=== PATIENT | male | born 1960 | race Caucasian/White ===

== ENCOUNTER 2016-11-28 17:44 | Emergency (ER) | payer SELFPAY ==
--- NOTE | 2016-11-28 17:52 | ED.ADGEN ---
Past History Past Medical History: No Pertinent History Past Surgical History: Other Smoking: Cigarettes Alcohol Use: None Drug Use: None Adult General Chief Complaint Chief Complaint ".. I fell on the .. I slipped on a greasy floor.. and hurt my Rt. wrist.. and chest... when I fell against a bucket..."... " But I hurt this Rt. wrist again..." HPI HPI Patient is a 56 year old male who presents with above hx and complaints of falling while working at " [employer]. Pt. complaints of right chest wall tenderness and right wrist and thumb tenderness. Patient has contusion to chest wall pain along the anterior axillary line. Pain is reproducible with palpitation, cough and movement. Patient does have an area of ecchymosis at this location. Liver is nontender. Patient localizes pain and right wrist and thumb. The neurovascular intact. Patient has obvious pain on palpation of scaphoid area. Patient is right-hand dominant. Review of Systems Review of Systems Constitutional: Denies fever or chills [] Eyes: Denies change in visual acuity, redness, or eye pain [] HENT: Denies nasal congestion or sore throat [] Respiratory: Denies cough or shortness of breath [] complaints of right chest wall pain Cardiovascular: No additional information not addressed in HPI [] GI: Denies abdominal pain, nausea, vomiting, bloody stools or diarrhea [] : Denies dysuria or hematuria [] Musculoskeletal: Denies back pain or joint pain [] complaints of right wrist pain Integument: Denies rash or skin lesions [] Neurologic: Denies headache, focal weakness or sensory changes [] Endocrine: Denies polyuria or polydipsia [] Family History Family History Noncontributory Current Medications Current Medications See nursing for home meds Current Medications Medications (Trade) Dose Ordered Sig/Abner Start Time Stop Time Status Last Admin Dose Admin Ibuprofen (Motrin) 600 mg 1X ONCE 11/28/16 19:00 11/28/16 19:01 DC 11/28/16 19:00 600 MG Allergies Allergies Allergies Coded Allergies Type Severity Reaction Last Updated Verified No Known Drug Allergies 07/26/13 No Physical Exam Physical Exam Constitutional: Mild distress, non-toxic appearance. [] HENT: Normocephalic, atraumatic, bilateral external ears normal, oropharynx moist, no oral exudates, nose normal. [] Eyes: PERRLA, EOMI, conjunctiva normal, no discharge. [] Neck: Normal range of motion, no tenderness, supple, no stridor. [] Cardiovascular:Heart rate regular rhythm, no murmur [] Lungs & Thorax: Bilateral breath sounds equal at apexes with scattered wheezing on auscultation [. Right chest wall tenderness as per history of present illness.] Abdomen: Bowel sounds normal, soft, no tenderness, no masses, no pulsatile masses. [] Skin: Warm, dry, no erythema, no rash. [] Ecchymosis along the right chest wall Back: No tenderness, no CVA tenderness. [] Extremities: Right wrist tenderness, no cyanosis, no clubbing, ROM intact but tender and right wrist, right wrist edema. [] Neurologic: Alert and oriented X 3, normal motor function, normal sensory function, no focal deficits noted. [] Psychologic: Affect anxious, judgement normal, mood normal. [] Current Patient Data Vital Signs Vital Signs Date Time Temp Pulse Resp B/P Pulse Ox O2 Delivery O2 Flow Rate FiO2 11/28/16 19:00 97.4 60 20 97 Room Air EKG EKG [] Radiology/Procedures Radiology/Procedures My interpretation chest x-ray shows borderline cardiac silhouette. No pneumothorax. Some mild degenerative joint changes. Does have an area which appears to be parenchymal contused along the right chest wall. [] My interpretation of her right wrist film shows no obvious fracture or dislocation. There are some findings of soft tissue edema. Course & Med Decision Making Course & Med Decision Making Pertinent Labs and Imaging studies reviewed. (See chart for details) Neuro-Vascular intact after application of spica splint . Patient to keep ice and elevation as needed to reduce swelling. Patient take [id number] Tylenol and ibuprofen. Patient follow-up workmen comp. For marked pain patient may take Vicoprofen up 4 times a day. Patient encouraged to stop smoking. Patient return if any concerns. Would repeat x-ray right wrist within 2 weeks see if there is a callus formation of the scaphoid. [] Final Impression Final Impression 1. Right chest wall contusion 2. Tobacco use 3. Right wrist and thumb sprain-there is possibility of scaphoid fracture [] Problems: Dragon Disclaimer Dragon Disclaimer This electronic medical record was generated, in whole or in part, using a voice recognition dictation system. MARIIA SERNA MD Nov 28, 2016 17:52
[2016-11-28] MEDS ORDERED: HYDR-79 PO (18:49)
[2016-11-28 19:00] VITALS: BP 137/95
[2016-11-28] MEDS: IBUPROFEN 600 MG TABLET. PO ONE (19:00)
--- NOTE | 2016-11-29 08:24 | RAD ---
Exam: PA and lateral chest radiograph History: Injury from fall 2 weeks ago, right pain. Comparison: 07/26/2013. Findings: Cardiomediastinal silhouette is within normal limits for size. Bilateral lung silverman are free of focal infiltrate. No pleural effusion is seen. No displaced rib fractures are identified. Impression: No acute cardiopulmonary process.
--- NOTE | 2016-11-29 08:25 | RAD ---
Right wrist radiographs History: Fall 2 weeks ago, pain. Comparison: None. Findings: PA, lateral, and oblique views of the right wrist. No acute fracture or dislocation is identified. No focal soft tissue swelling is seen. Impression: No acute osseous traumatic injury identified.
== END 2016-11-28 20:05 | disposition home or self-care (01) ==
LOC: ER 17:44
DX: S63.501A Unspecified sprain of right wrist, initial encounter (principal); S20.211A Contusion of right front wall of thorax, initial encounter; F17.210 Nicotine dependence, cigarettes, uncomplicated; W01.198A Fall on same level from slipping, tripping and stumbling with subsequent striking against other object, initial encounter; Y93.89 Activity, other specified; Y99.8 Other external cause status; Y92.89 Other specified places as the place of occurrence of the external cause
CPT/HCPCS: 29130; 71020; 73110; 99284-25

== ENCOUNTER 2017-10-23 12:03 | Emergency (ER) | payer SELFPAY ==
[~2017-10-23] VITALS: Ht 185.4 cm; Wt 95.3 kg
[~2017-10-23 12:03] MED LIST: HYDR-79 PO
[2017-10-23 12:21] VITALS: BP 137/77
--- NOTE | 2017-10-23 12:51 | PHYS DOC ---
Past History Past Medical History: No Pertinent History Past Surgical History: No Surgical History Smoking: Cigarettes Alcohol Use: None Drug Use: None Adult General Chief Complaint Chief Complaint: bump on foot. HPI HPI 57-year-old male reportedly otherwise healthy presenting to the emergency department today with mild bump on the bottom of his left foot. He reports his been there for 1.5 years. It comes and goes. He has at times, it off but he reports it came back many times. He has mild pain when he walks on it. He denies any rash near it. The pain in the bottom of his foot is a sharp shooting pain nonradiating. He denies any other symptoms. Past medical history history of headaches Past surgical history back surgery in the past allergies none Social history smokes drinks daily and denies IV drug use. Review of systems is negative for chest pain shortness of breath abdominal pain nausea vomiting fevers or chills. All other review of systems is negative unless otherwise noted in history of present illness. ED course: 57-year-old male presenting to the emergency department with what is likely a plantar wart on his left foot. I will refer him to our local hydraulic riveter for further treatment and care. The patient was then discharged home in stable condition to follow up with a hydraulic riveter withint the next 2-3 days. They were to return if their symptoms worsened or if they were concerned for any reason. [id number] discharge instructions and return precautions were given. Patient's questions were answered to their satisfaction. Patient is comfortable with plan. Review of Systems Review of Systems SEE ABOVE. Allergies Allergies Allergies Coded Allergies Type Severity Reaction Last Updated Verified No Known Drug Allergies 07/26/13 No Physical Exam Physical Exam SEE ABOVE Constitutional: Well developed, well nourished, no acute distress, non-toxic appearance. [] HENT: Normocephalic, atraumatic, bilateral external ears normal, oropharynx moist, no oral exudates, nose normal. [] Eyes: PERRLA, EOMI, conjunctiva normal, no discharge. [] Neck: Normal range of motion, no tenderness, supple, no stridor. [] Cardiovascular:Heart rate regular rhythm, no murmur [] Lungs & Thorax: Bilateral breath sounds clear to auscultation [] Abdomen: Bowel sounds normal, soft, no tenderness, no masses, no pulsatile masses. [] Skin: Warm, dry, no erythema, no rash. [] Back: No tenderness, no CVA tenderness. [] Extremities: The patient's left lower extremity shows a small bump on the bottom of his foot. No erythema. Normal temperature to touch. Palpable pulse bilaterally. Cap refill bilaterally. Otherwise unremarkable. Nontender with normal range of motion of the joints. Neurologic: Alert and oriented X 3, normal motor function, normal sensory function, no focal deficits noted. [] Psychologic: Affect normal, judgement normal, mood normal. [] Current Patient Data Vital Signs Vital Signs Date Time Temp Pulse Resp B/P (MAP) Pulse Ox O2 Delivery O2 Flow Rate FiO2 10/23/17 12:21 98.6 52 18 100 Room Air EKG EKG [] Radiology/Procedures Radiology/Procedures [] Course & Med Decision Making Course & Med Decision Making Pertinent Labs and Imaging studies reviewed. (See chart for details) [] Dragon Disclaimer Dragon Disclaimer This electronic medical record was generated, in whole or in part, using a voice recognition dictation system. Departure Departure: Impression: Primary Impression: Plantar wart, left foot Disposition: 01 HOME, SELF-CARE Condition: STABLE Referrals: PCP,NO (PCP) Patient Instructions: Plantar Warts, [id number] Additional Instructions: Thank you for allowing us to participate in your care today. I am referring you to a hydraulic riveter in [facility] within 3-5 days. Information below: Juan Antonio Garcia DPM [address] [place] [address] Call your Primary Doctor tomorrow and inform them of your visit today. If you do not have a primary care provider you can ask for a list of our primary care providers. Return to the emergency department you have any new or concerning findings. This should be evaluated by the primary care physician and any necessary consulting services for continued management within a few days after discharge. Return to emergency room if you have any new or concerning symptoms including but not limited to fever, chills, nausea, vomiting, intractable pain, any new rashes, chest pain, shortness of air, uncontrolled bleeding, difficulty breathing, and/or vision loss. LEONEL TABARES MD Oct 23, 2017 12:51
== END 2017-10-23 13:00 | disposition home or self-care (01) ==
LOC: ER 12:03
DX: B07.0 Plantar wart (principal); F17.210 Nicotine dependence, cigarettes, uncomplicated
CPT/HCPCS: 99281

== ENCOUNTER 2018-09-28 15:12 | Emergency (ER) | payer SELFPAY ==
[~2018-09-28] VITALS: Ht 185.4 cm; Wt 100.1 kg
[~2018-09-28 15:12] MED LIST changes: +HYDR-1179 PO; -HYDR-79 PO
[2018-09-28] MEDS ORDERED: IPRATRPIUM/ALBUTEROL 0.5/2.5MG 3 ML NEBU. NEB ONE (15:45)
--- NOTE | 2018-09-28 15:48 | EKG ---
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 Electronically Signed On 10-01-2018 10:50:23 GLOVE SEWER by Maurice Small
--- NOTE | 2018-09-28 15:51 | RAD ---
Portable chest, 09/28/2018: HISTORY: Shortness of breath, cough Comparison is made to a study from 11/28/2016. The heart size is normal. A calcified granuloma is present in the right base. No acute infiltrate is seen. There is no evidence of pleural fluid. IMPRESSION: No acute cardiopulmonary abnormality is detected. Electronically signed by: Chris Salcedo MD (09/28/2018 3:48 PM) [facility]
--- NOTE | 2018-09-28 15:53 | PHYS DOC ---
Past History Past Medical History: No Pertinent History Past Surgical History History of cyst removal from back. Smoking: Cigarettes Alcohol Use: None Drug Use: None Adult General Chief Complaint Chief Complaint: cough HPI HPI 58-year-old male presenting to the emergency department today with a dry mildly productive cough with yellow sputum production. Cough is been present for approximately 10 days. He is tried DayQuil and NyQuil with minimal relief. He denies any fevers or chills. He denies any pain. He also has associated shortness of breath which is worse after he has a long coughing episode. His cough is worse at night. Review of systems is negative for chest pain abdominal pain nausea vomiting fever chills. He denies neck stiffness or nuchal rigidity. All other review of systems is negative unless otherwise noted in history of present illness. ED course: 58-year-old male presenting with a cough. He is afebrile here in the emergency department with a normal heart rate. EKG reviewed by myself shows sinus rhythm with a regular rate. ST segments congruent. Not suggestive of ACS. Chest x-ray ordered along with blood work. Physical exam shows clear lungs bilaterally. Chest x-ray is unremarkable. Blood work unremarkable. Patient is able to ambulate in the emergency department without difficulty. We'll prescribe him oral azithromycin and follow up with his doctor.The patient has been examined and was not found to have an emergency medical condition. The patient was then discharged home in stable condition to follow up with their primary care physician over the next 1-2 days. They were to return if their symptoms worsened or if they were concerned for any reason. They were also instructed to return to the emergency department if they were unable to get the recommended and appropriate follow-up. [id number] discharge instructions and return precautions were given. Patient's questions were answered to their satisfaction. Patient is comfortable with plan. Review of Systems Review of Systems SEE ABOVE. Current Medications Current Medications Current Medications Medications (Trade) Dose Ordered Sig/[facility] Start Time Stop Time Status Last Admin Dose Admin Albuterol/ Ipratropium (Duoneb) 3 ml 1X ONCE 09/28/18 15:45 09/28/18 15:47 DC Allergies Allergies Allergies Coded Allergies Type Severity Reaction Last Updated Verified No Known Drug Allergies 07/26/13 No Physical Exam Physical Exam SEE ABOVE Constitutional: Well developed, well nourished, no acute distress, non-toxic appearance. [] HENT: Normocephalic, atraumatic, bilateral external ears normal, oropharynx moist, no oral exudates, nose normal. [] Eyes: PERRLA, EOMI, conjunctiva normal, no discharge. [] Neck: Normal range of motion, no tenderness, supple, no stridor. [] Cardiovascular:Heart rate regular rhythm, no murmur [] Lungs & Thorax: Bilateral breath sounds clear to auscultation [] Abdomen: Bowel sounds normal, soft, no tenderness, no masses, no pulsatile masses. [] Skin: Warm, dry, no erythema, no rash. [] Back: No tenderness, no CVA tenderness. [] Extremities: No tenderness, no cyanosis, no clubbing, ROM intact, no edema. [] Neurologic: Alert and oriented X 3, normal motor function, normal sensory function, no focal deficits noted. [] Psychologic: Affect normal, judgement normal, mood normal. [] EKG EKG [] Radiology/Procedures Radiology/Procedures [] Course & Med Decision Making Course & Med Decision Making Pertinent Labs and Imaging studies reviewed. (See chart for details) [] Dragon Disclaimer Dragon Disclaimer This electronic medical record was generated, in whole or in part, using a voice recognition dictation system. Departure Departure: Impression: Primary Impression: Cough Disposition: 01 HOME, SELF-CARE Condition: STABLE Referrals: SADIA BEAUCHAMP (PCP) Patient Instructions: Cough, Adult Additional Instructions: Thank you for allowing us to participate in your care today. Return to the emergency department you have any new or worsening symptoms, or if you are concerned for any reason. Return to emergency department if you have any new or concerning symptoms including but not limited to fever, chills, nausea, vomiting, intractable pain, any new rashes, chest pain, shortness of air , uncontrolled bleeding, difficulty breathing, and/or vision loss. Follow up with your primary care physician within 1-2 days. Call your Primary Doctor tomorrow and inform them of your visit today. If you do not have a primary care provider we are happy to provide you with a list of our primary care providers contact information. This condition should be evaluated by your primary care physician and any recommended consulting services for continued management within 2 days after discharge. If at any time, you are having difficulty getting into your primary care doctor or a specialist, return to the emergency department. Scripts Albuterol Sulfate (Ventolin Hfa) 8 Gm Hfa.aer.ad 1 GM IH PRN TID PRN for COUGH for 5 Days, #1 INHALER Prov: LEONEL TABARES MD 09/28/18 Azithromycin (AZITHROMYCIN TABLET) 250 Mg Tablet 1 PKG PO UD for cough, #6 TAB Prov: LEONEL TABARES MD 09/28/18 LEONEL TABARES MD Sep 28, 2018 15:53
[2018-09-28 16:09] LABS: BASO % 1 % (0-3); EOS # 0.5 x10^3/uL (0.0-0.7); EOS % 5 % (0-3); HEMATOCRIT 39.5 % (39.0-53.0); HEMOGLOBIN 13.8 g/dL (13.0-17.5); LYMPH # 1.8 x10^3/uL (1.0-4.8); LYMPH % 21 % (24-48); MEAN CORPUSCULAR HEMOGLOBIN 32 pg (25-35); MEAN CORPUSCULAR HGB CONC 35 g/dL (31-37); MEAN CORPUSCULAR VOLUME 92 fL (79-100); MONO # 0.7 x10^3/uL (0.0-1.1); MONO % 8 % (0-9); NEUT # 5.8 x10^3uL (1.8-7.7); NEUT % 66 % (31-73); PLATELET COUNT 308 x10^3/uL (140-400); RED BLOOD COUNT 4.28 x10^6/uL (4.30-5.70); RED CELL DISTRIBUTION WIDTH 13.2 % (11.5-14.5); WHITE BLOOD COUNT 8.8 x10^3/uL (4.0-11.0)
[2018-09-28 16:32] LABS: ALBUMIN 3.4 g/dL (3.4-5.0); CALCIUM 8.7 mg/dL (8.5-10.1); DIRECT BILIRUBIN 0.1 mg/dL (0.0-0.2); GFR 77.3; POTASSIUM 4.3 mmol/L (3.5-5.1); TOTAL BILIRUBIN 0.3 mg/dL (0.2-1.0); TOTAL PROTEIN 7.7 g/dL (6.4-8.2)
[2018-09-28] MEDS ORDERED: AZIT250T6 PO (16:38)
[2018-09-28] MEDS ORDERED: ALBU8HFA2 IH (16:38)
[2018-09-28 17:04] VITALS: BP 138/72
== END 2018-09-28 17:04 | disposition home or self-care (01) ==
LOC: ER 15:12
DX: R05 Cough (principal); R06.02 Shortness of breath; F17.210 Nicotine dependence, cigarettes, uncomplicated
CPT/HCPCS: 36415; 71045; 80048; 80076; 83690; 84484; 85025; 93005; 94640; 99284; J7620

== ENCOUNTER 2019-09-17 10:14 | Emergency (ER) | payer SELFPAY ==
[~2019-09-17] VITALS: Ht 185.4 cm; Wt 100.9 kg
[~2019-09-17 10:14] MED LIST changes: +ALBU8HFA2 IH; +AZIT250T6 PO
[2019-09-17] MEDS ORDERED: IV NORMAL SALINE 1,000ML 1,000 ML IV SCH (10:33)
--- NOTE | 2019-09-17 10:44 | PHYS DOC ---
Past History Past Medical History: No Pertinent History Smoking: Cigarettes Alcohol Use: Occasionally Drug Use: None Adult General Chief Complaint Chief Complaint: CHEST PAIN HPI HPI 59-year-old male presents with shortness of breath and chest tightness. He tells me that he has had intermittent chest tightness made worse by breathing cold air for the last few years since having pneumonia. Long Term feels the same. He has been outside a lot recently and the temperatures are less than 40 Fahrenheit. He has had a increase in his cough with some clear sputum. The patient is a 2-1/2 pack a day smoker. He has no official diagnosis of COPD. He tells me that the shortness of breath makes it difficult to walk more than 50 feet without needing to rest. His breathing improves with rest. Exertion does not seem to make the chest pain worse. Patient does not believe he's had a fever. He does not use any breathing treatments. He rarely goes to the doctor. Review of Systems Review of Systems Constitutional: Denies fever or chills [] Eyes: Denies change in visual acuity, redness, or eye pain [] HENT: Nasal congestion. Denies or sore throat [] Respiratory: Cough with shortness of breath [] Cardiovascular: No additional information not addressed in HPI [] GI: Denies abdominal pain, nausea, vomiting, bloody stools or diarrhea [] : Denies dysuria or hematuria [] Musculoskeletal: Denies back pain or joint pain [] Integument: Denies rash or skin lesions [] Neurologic: Denies headache, focal weakness or sensory changes [] Endocrine: Denies polyuria or polydipsia [] All other systems were reviewed and found to be within normal limits, except as documented in this note. Current Medications Current Medications Current Medications Medications (Trade) Dose Ordered Sig/Abner Start Time Stop Time Status Last Admin Dose Admin Albuterol/ Ipratropium (Duoneb) 3 ml 1X ONCE 09/17/19 10:45 09/17/19 10:46 UNV Sodium Chloride 1,000 ml @ 1,000 mls/hr Q1H 09/17/19 10:33 09/17/19 11:32 UNV Allergies Allergies Allergies Coded Allergies Type Severity Reaction Last Updated Verified No Known Drug Allergies 07/26/13 No Physical Exam Physical Exam Constitutional: Well developed, well nourished, no acute distress, non-toxic appearance. [] HENT: Normocephalic, atraumatic, bilateral external ears normal, oropharynx moist, no oral exudates, nose normal. [] Eyes: PERRLA, EOMI, conjunctiva normal, no discharge. [] Neck: Normal range of motion, no tenderness, supple, no stridor. [] Cardiovascular:Heart rate regular rhythm, no murmur [] Lungs & Thorax: Bilateral breath sounds diminished with and expiratory wheezing[] Abdomen: Bowel sounds normal, soft, no tenderness, no masses, no pulsatile masses. [] Skin: Warm, dry, no erythema, no rash. [] Back: No tenderness, no CVA tenderness. [] Extremities: No tenderness, no cyanosis, no clubbing, ROM intact, no edema. [] Neurologic: Alert and oriented X 3, normal motor function, normal sensory function, no focal deficits noted. [] Psychologic: Affect normal, judgement normal, mood normal. [] EKG EKG Sinus rhythm, rate 54, normal axis, no ST elevation or depression[] Radiology/Procedures Radiology/Procedures [] Impressions: CHEST PA LATERAL History: Shortness of breath Comparison: 09/28/2018 Findings: 2 views of the chest are submitted. There is no infiltrate, pneumothorax, or effusion. Pericardial cardiac silhouette is stable. There is atherosclerotic calcification near aortic arch. There is likely emphysema Impression: 1. There is likely emphysema. No significant infiltrate is identified by radiographs. Electronically signed by: Neptali Garcia MD (09/17/2019 11:15 AM) [id number] DICTATED AND SIGNED BY: NEPTALI GARCIA MD DATE: 09/17/19 [id number] CC: LAWSON CONWAY DO; PCP,NO ~ Course & Med Decision Making Course & Med Decision Making Pertinent Labs and Imaging studies reviewed. (See chart for details) The patient's labs are unremarkable. His chest x-ray is negative for new. His influenza was negative. This is likely a COPD exacerbation. I have given him 125 of Solu-Medrol in the ER. I will send him home on 3 more days of prednisone. He is stable for discharge at this time. [] Dragon Disclaimer Dragon Disclaimer This electronic medical record was generated, in whole or in part, using a voice recognition dictation system. The HEART Score for CP Pts HEART Score for Chest Pain: HEART Score for Chest Pain Response (Comments) Value History Slighlty/Non-Suspicious 0 ECG Normal 0 Age >45 - < 65 1 Risk Factors 1 or 2 Risk Factors 1 Troponin < Normal Limit 0 Total 2 Risk Factors: Risk Factors: DM, Current or recent (<one month) smoker, HTN, HLP, family history of CAD, obesity. Risk Scores: Score 0 - 3: 2.5% MACE over next 6 weeks - Discharge Home Score 4 - 6: 20.3% MACE over next 6 weeks - Admit for Clinical Observation Score 7 - 10: 72.7% MACE over next 6 weeks - Early Invasive Strategies Departure Departure: Impression: Primary Impression: COPD exacerbation Disposition: HOME, SELF-CARE Condition: STABLE Referrals: PCP,SADIA (PCP) Patient Instructions: Chronic Obstructive Pulmonary Disease Exacerbation, [id number] Scripts Albuterol Sulfate (VENTOLIN HFA INHALER) 18 Gm Hfa.aer.ad 1-2 PUFF IH PRN Q4HRS PRN for SHORTNESS OF BREATH, #1 INHALER 0 Refills Prov: LAWSON CONWAY DO 09/17/19 Prednisone (PREDNISONE) 20 Mg Tablet 3 TAB PO DAILY for COPD exacerbation for 3 Days, #9 TAB Prov: LAWSON CONWAY DO 09/17/19 LAWSON CONWAY DO Sep 17, 2019 10:44
[2019-09-17] MEDS ORDERED: methylPREDNISolone SOD SUCC PF 125 MG/2 ML VIAL. IV ONE (10:45)
[2019-09-17] MEDS ORDERED: IPRATRPIUM/ALBUTEROL 0.5/2.5MG 3 ML NEBU. NEB ONE (10:45)
[2019-09-17 10:56] LABS: BASO # 0.1 x10^3/uL (0.0-0.2); BASO % 1 % (0-3); EOS # 0.2 x10^3/uL (0.0-0.7); EOS % 2 % (0-3); HEMATOCRIT 40.7 % (39.0-53.0); LYMPH % 28 % (24-48); MEAN CORPUSCULAR HEMOGLOBIN 32 pg (25-35); MEAN CORPUSCULAR HGB CONC 34 g/dL (31-37); MEAN CORPUSCULAR VOLUME 94 fL (79-100); MONO # 0.5 x10^3/uL (0.0-1.1); MONO % 6 % (0-9); NEUT # 4.6 x10^3uL (1.8-7.7); NEUT % 63 % (31-73); PLATELET COUNT 219 x10^3/uL (140-400); RED BLOOD COUNT 4.33 x10^6/uL (4.30-5.70); RED CELL DISTRIBUTION WIDTH 12.9 % (11.5-14.5); WHITE BLOOD COUNT 7.4 x10^3/uL (4.0-11.0)
[2019-09-17 11:06] LABS: CALCIUM 8.1 mg/dL (8.5-10.1); CREATININE 0.9 mg/dL (0.7-1.3); POTASSIUM 4.1 mmol/L (3.5-5.1)
[2019-09-17 11:18] LABS: ALBUMIN 3.4 g/dL (3.4-5.0); TOTAL BILIRUBIN 0.2 mg/dL (0.2-1.0); TOTAL PROTEIN 6.7 g/dL (6.4-8.2)
--- NOTE | 2019-09-17 11:18 | RAD ---
CHEST PA LATERAL History: Shortness of breath Comparison: 09/28/2018 Findings: 2 views of the chest are submitted. There is no infiltrate, pneumothorax, or effusion. Pericardial cardiac silhouette is stable. There is atherosclerotic calcification near aortic arch. There is likely emphysema Impression: 1. There is likely emphysema. No significant infiltrate is identified by radiographs. Electronically signed by: Papa Martinez MD (09/17/2019 11:15 AM) [id number]
[2019-09-17 11:25] LABS: INFLUENZA A PATIENT NEGATIVE (NEGATIVE); INFLUENZA B PATIENT NEGATIVE (NEGATIVE)
[2019-09-17] MEDS ORDERED: PRED20TA PO (11:37)
[2019-09-17] MEDS ORDERED: ALBU2.5V8 IH (11:38)
[2019-09-17 11:45] VITALS: BP 140/63
--- NOTE | 2019-09-17 12:36 | EKG ---
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
== END 2019-09-17 11:46 | disposition home or self-care (01) ==
LOC: ER 10:14
DX: J44.1 Chronic obstructive pulmonary disease with (acute) exacerbation (principal); F17.210 Nicotine dependence, cigarettes, uncomplicated
CPT/HCPCS: 36415; 71046; 80053; 83880; 84484; 85025; 87804; 93005; 94640; 96374; 99285; J2930; J7620; J7030

== ENCOUNTER 2019-11-29 06:15 | Emergency (ER) | payer SELFPAY ==
[~2019-11-29] VITALS: Ht 185.4 cm; Wt 102.8 kg
[2019-11-29 06:15] VITALS: BP 128/58
[~2019-11-29 06:15] MED LIST changes: +ALBU2.5V8 IH; +PRED20TA PO
[2019-11-29 06:50] LABS: BASO # 0.1 x10^3/uL (0.0-0.2); BASO % 1 % (0-3); EOS # 0.3 x10^3/uL (0.0-0.7); EOS % 4 % (0-3); HEMATOCRIT 41.4 % (39.0-53.0); HEMOGLOBIN 14.2 g/dL (13.0-17.5); LYMPH # 1.7 x10^3/uL (1.0-4.8); LYMPH % 22 % (24-48); MEAN CORPUSCULAR HEMOGLOBIN 33 pg (25-35); MEAN CORPUSCULAR HGB CONC 34 g/dL (31-37); MEAN CORPUSCULAR VOLUME 95 fL (79-100); MONO # 0.5 x10^3/uL (0.0-1.1); MONO % 7 % (0-9); NEUT # 5.2 x10^3uL (1.8-7.7); NEUT % 67 % (31-73); PLATELET COUNT 233 x10^3/uL (140-400); RED BLOOD COUNT 4.36 x10^6/uL (4.30-5.70); RED CELL DISTRIBUTION WIDTH 13.8 % (11.5-14.5); WHITE BLOOD COUNT 7.8 x10^3/uL (4.0-11.0)
[2019-11-29 06:57] LABS: CALCIUM 8.1 mg/dL (8.5-10.1); POTASSIUM 3.9 mmol/L (3.5-5.1)
[2019-11-29] MEDS ORDERED: IV NORMAL SALINE 1,000ML 1,000 ML IV ONE (07:00)
[2019-11-29 07:03] LABS: ALBUMIN 3.2 g/dL (3.4-5.0); ALBUMIN/GLOBULIN RATIO 0.8 (1.0-1.7); TOTAL BILIRUBIN 0.3 mg/dL (0.2-1.0)
--- NOTE | 2019-11-29 07:08 | PHYS DOC ---
Past History Past Medical History: COPD, Pneumonia Past Surgical History: Other Additional Past Surgical Histo: CATARACT Smoking: Cigarettes Alcohol Use: Rarely Drug Use: None General Adult EDM: Chief Complaint: SHORTNESS OF BREATH HPI: HPI: 59-year-old male presents with shortness of breath. He came in wanting COVID-19 testing. He states that he has had an increase in his cough. He is feeling somewhat more short of breath. He has COPD at baseline. He called the emergency room at 10 PM last night but has not come in. He really just wants to get an inhaler. The patient denies fever chills. He has no specific risk factors for COVID-19. He has not been around a confirmed case. He states that his breathing improves with inhaler use, he just ran out of his inhaler which turned out to not be his inhaler but a friend's inhaler. He has no PCP. Review of Systems: Review of Systems: Constitutional: Denies fever or chills Eyes: Denies change in visual acuity HENT: Denies nasal congestion or sore throat Respiratory: Denies cough or shortness of breath Cardiovascular: Denies chest pain or edema GI: Denies abdominal pain, nausea, vomiting, bloody stools or diarrhea : Denies dysuria Musculoskeletal: Denies back pain or joint pain Integument: Denies rash Neurologic: Denies headache, focal weakness or sensory changes Endocrine: Denies polyuria or polydipsia Lymphatic: Denies swollen glands Psychiatric: Denies depression or anxiety Heart Score: Risk Factors: Risk Factors: DM, Current or recent (<one month) smoker, HTN, HLP, family history of CAD, obesity. Risk Scores: Score 0 - 3: 2.5% MACE over next 6 weeks - Discharge Home Score 4 - 6: 20.3% MACE over next 6 weeks - Admit for Clinical Observation Score 7 - 10: 72.7% MACE over next 6 weeks - Early Invasive Strategies Current Medications: Current Meds: Current Medications Medications (Trade) Dose Ordered Sig/Abner Start Time Stop Time Status Last Admin Dose Admin Sodium Chloride 1,000 ml @ 1,000 mls/hr 1X ONCE 11/29/19 07:00 11/29/19 07:59 Allergies: Allergies: Allergies Coded Allergies Type Severity Reaction Last Updated Verified No Known Drug Allergies 07/26/13 No Physical Exam: PE: Constitutional: Well developed, well nourished, no acute distress, non-toxic appearance. [] HENT: Normocephalic, atraumatic, bilateral external ears normal, oropharynx moist, no oral exudates, nose normal. [] Eyes: PERRLA, EOMI, conjunctiva normal, no discharge. [] Neck: Normal range of motion, no tenderness, supple, no stridor. [] Cardiovascular:Heart rate regular rhythm, no murmur [] Lungs & Thorax: Bilateral breath sounds clear to auscultation [] Abdomen: Bowel sounds normal, soft, no tenderness, no masses, no pulsatile masses. [] Skin: Warm, dry, no erythema, no rash. [] Back: No tenderness, no CVA tenderness. [] Extremities: No tenderness, no cyanosis, no clubbing, ROM intact, no edema. [] Neurologic: Alert and oriented X 3, normal motor function, normal sensory function, no focal deficits noted. [] Psychologic: Affect normal, judgement normal, mood normal. [] Current Patient Data: Labs: Laboratory Tests Test 11/29/19 06:35 White Blood Count 7.8 x10^3/uL (4.0-11.0) Red Blood Count 4.36 x10^6/uL (4.30-5.70) Hemoglobin 14.2 g/dL (13.0-17.5) Hematocrit 41.4 % (39.0-53.0) Mean Corpuscular Volume 95 fL (79-100) Mean Corpuscular Hemoglobin 33 pg (25-35) Mean Corpuscular Hemoglobin Concent 34 g/dL (31-37) Red Cell Distribution Width 13.8 % (11.5-14.5) Platelet Count 233 x10^3/uL (140-400) Neutrophils (%) (Auto) 67 % (31-73) Lymphocytes (%) (Auto) 22 % (24-48) L Monocytes (%) (Auto) 7 % (0-9) Eosinophils (%) (Auto) 4 % (0-3) H Basophils (%) (Auto) 1 % (0-3) Neutrophils # (Auto) 5.2 x10^3uL (1.8-7.7) Lymphocytes # (Auto) 1.7 x10^3/uL (1.0-4.8) Monocytes # (Auto) 0.5 x10^3/uL (0.0-1.1) Eosinophils # (Auto) 0.3 x10^3/uL (0.0-0.7) Basophils # (Auto) 0.1 x10^3/uL (0.0-0.2) Sodium Level 134 mmol/L (136-145) L Potassium Level 3.9 mmol/L (3.5-5.1) Chloride Level 102 mmol/L (98-107) Carbon Dioxide Level 24 mmol/L (21-32) Anion Gap 8 (6-14) Blood Urea Nitrogen 10 mg/dL (8-26) Creatinine 1.0 mg/dL (0.7-1.3) Estimated GFR (Cockcroft-Gault) 77.0 BUN/Creatinine Ratio 10 (6-20) Glucose Level 139 mg/dL (70-99) H Calcium Level 8.1 mg/dL (8.5-10.1) L Total Bilirubin 0.3 mg/dL (0.2-1.0) Aspartate Amino Transferase (AST) 14 U/L (15-37) L Alanine Aminotransferase (ALT) 25 U/L (16-63) Alkaline Phosphatase 114 U/L (46-116) Total Protein 7.0 g/dL (6.4-8.2) Albumin 3.2 g/dL (3.4-5.0) L Albumin/Globulin Ratio 0.8 (1.0-1.7) L Vital Signs: Vital Signs Date Time Temp Pulse Resp B/P (MAP) Pulse Ox O2 Delivery O2 Flow Rate FiO2 11/29/19 06:15 97.9 66 20 128/58 (81) 97 Room Air EKG: EKG: [] Radiology/Procedures: Radiology/Procedures: [] Impressions: Study: CR CHEST AP ONLY Indication: Shortness of breath. Cough. Comparison: 09/17/2019 Findings: Unchanged cardiomediastinal silhouette and lisa. Atherosclerotic calcification seen at the aortic arch. Generalized increased lung markings are very similar in extent to the comparison. No newly seen airspace infiltrate. No layering effusion or pneumothorax. Scattered granulomas. Impression: No significant change from the 09/17/2019 comparison exam. There are again findings suggestive of underlying emphysema. Electronically signed by: CLAIRE MOONEY MD (11/29/2019 7:19 AM) [id number] DICTATED AND SIGNED BY: CLAIRE MOONEY MD DATE: 11/29/19718 CC: LAWSON CONWAY DO; PCP,NO ~ Course & Med Decision Making: Course & Med Decision Making Pertinent Labs and Imaging studies reviewed. (See chart for details) The patient's labs are unremarkable for his current complaint. His chest x-ray shows emphysema, but is unchanged from September. He is satting 97% on room air. I will give him 125 of Solu-Medrol IV and a prescription for an albuterol inhaler. He is stable for discharge at this time. I do not believe the COVID- 19 testing is warranted under current guidelines. [] Dragon Disclaimer: Dragon Disclaimer: This electronic medical record was generated, in whole or in part, using a voice recognition dictation system. Departure Departure: Impression: Primary Impression: COPD exacerbation Disposition: HOME, SELF-CARE Condition: STABLE Referrals: PCP,SADIA (PCP) Patient Instructions: Chronic Obstructive Pulmonary Disease, [id number] Scripts Albuterol Sulfate (VENTOLIN HFA INHALER) 18 Gm Hfa.aer.ad 1-2 PUFF IH PRN Q4HRS PRN for FOR ASTHMA, #1 INHALER 1 Refill Prov: LAWSON CONWAY DO 11/29/19 LAWSON CONWAY DO Nov 29, 2019 07:08
[2019-11-29] MEDS ORDERED: ALBU2.5V8 IH (07:19)
--- NOTE | 2019-11-29 07:22 | RAD ---
Study: CR CHEST AP ONLY Indication: Shortness of breath. Cough. Comparison: 09/17/2019 Findings: Unchanged cardiomediastinal silhouette and lisa. Atherosclerotic calcification seen at the aortic arch. Generalized increased lung markings are very similar in extent to the comparison. No newly seen airspace infiltrate. No layering effusion or pneumothorax. Scattered granulomas. Impression: No significant change from the 09/17/2019 comparison exam. There are again findings suggestive of underlying emphysema. Electronically signed by: CLAIRE MOONEY MD (11/29/2019 7:19 AM) [id number]
[2019-11-29] MEDS ORDERED: methylPREDNISolone SOD SUCC PF 125 MG/2 ML VIAL. IV ONE (07:30)
== END 2019-11-29 08:09 | disposition home or self-care (01) ==
LOC: ER 06:15
DX: J44.1 Chronic obstructive pulmonary disease with (acute) exacerbation (principal); F17.210 Nicotine dependence, cigarettes, uncomplicated
CPT/HCPCS: 36415; 71045; 80053; 85025; 96374; 99284; J2930

== ENCOUNTER 2020-03-03 12:41 | Emergency (ER) | payer OTHER ==
[~2020-03-03] VITALS: Ht 185.4 cm; Wt 102.0 kg
[2020-03-03] MEDS ORDERED: IV NORMAL SALINE 1,000ML 1,000 ML IV ONE (13:00)
[2020-03-03] MEDS ORDERED: ONDANSETRON PF 4 MG/2 ML VIAL. IVP ONE (13:00)
[2020-03-03 13:12] LABS: BASO # 0.1 x10^3/uL (0.0-0.2); BASO % 1 % (0-3); EOS # 0.1 x10^3/uL (0.0-0.7); EOS % 1 % (0-3); HEMATOCRIT 43.4 % (39.0-53.0); HEMOGLOBIN 14.8 g/dL (13.0-17.5); LYMPH # 1.4 x10^3/uL (1.0-4.8); LYMPH % 10 % (24-48); MEAN CORPUSCULAR HEMOGLOBIN 31 pg (25-35); MEAN CORPUSCULAR HGB CONC 34 g/dL (31-37); MEAN CORPUSCULAR VOLUME 92 fL (79-100); MONO # 0.7 x10^3/uL (0.0-1.1); MONO % 5 % (0-9); NEUT # 11.4 x10^3uL (1.8-7.7); NEUT % 83 % (31-73); PLATELET COUNT 269 x10^3/uL (140-400); RED BLOOD COUNT 4.74 x10^6/uL (4.30-5.70); RED CELL DISTRIBUTION WIDTH 13.9 % (11.5-14.5); WHITE BLOOD COUNT 13.7 x10^3/uL (4.0-11.0)
--- NOTE | 2020-03-03 13:14 | PHYS DOC ---
Past History Past Medical History: COPD, Pneumonia Past Surgical History: Other Additional Past Surgical Histo: CATARACT Smoking: Cigarettes Alcohol Use: Rarely Drug Use: None General Adult EDM: Chief Complaint: ABDOMINAL PAIN HPI: HPI: 59-year-old male presents with epigastric abdominal pain. The patient states the pain started last night just before bed. He woke up several times through the night and had diarrhea as well as vomiting. He continues to have epigastric pain at this time. The pain is moderate and cramping. He has had episodes like this in the past but they usually only are single episode of vomiting and the pain lasts for 20 to 30 minutes. His last episode of diarrhea was 1 hour prior to arrival and there was some red blood in it. Patient feels weak and tired. He lives by himself. He has no known sick contacts. No specific COVID-19 risk factors. He takes a proton pump inhibitor every day. He also takes laxatives frequently. Denies fever chills. Review of Systems: Review of Systems: Constitutional: Denies fever or chills Eyes: Denies change in visual acuity HENT: Denies nasal congestion or sore throat Respiratory: Denies cough or shortness of breath Cardiovascular: Denies chest pain or edema GI: Epigastric abdominal pain, nausea, vomiting, bloody stools and diarrhea : Denies dysuria Musculoskeletal: Denies back pain or joint pain Integument: Denies rash Neurologic: Denies headache, focal weakness or sensory changes Endocrine: Denies polyuria or polydipsia Lymphatic: Denies swollen glands Psychiatric: Denies depression or anxiety Heart Score: Risk Factors: Risk Factors: DM, Current or recent (<one month) smoker, HTN, HLP, family history of CAD, obesity. Risk Scores: Score 0 - 3: 2.5% MACE over next 6 weeks - Discharge Home Score 4 - 6: 20.3% MACE over next 6 weeks - Admit for Clinical Observation Score 7 - 10: 72.7% MACE over next 6 weeks - Early Invasive Strategies Current Medications: Current Meds: Current Medications Medications (Trade) Dose Ordered Sig/Abner Start Time Stop Time Status Last Admin Dose Admin Iohexol (Omnipaque 300 Mg/ml) 75 ml 1X ONCE 03/03/20 13:15 03/03/20 13:16 UNV Ondansetron HCl (Zofran) 4 mg 1X ONCE 03/03/20 13:00 03/03/20 13:03 DC Sodium Chloride 1,000 ml @ 1,000 mls/hr 1X ONCE 03/03/20 13:00 03/03/20 13:59 Allergies: Allergies: Allergies Coded Allergies Type Severity Reaction Last Updated Verified No Known Drug Allergies 03/03/20 No Physical Exam: PE: Constitutional: Well developed, well nourished, no acute distress, non-toxic appearance. [] HENT: Normocephalic, atraumatic, bilateral external ears normal, oropharynx moist, no oral exudates, nose normal. [] Eyes: PERRLA, EOMI, conjunctiva normal, no discharge. [] Neck: Normal range of motion, no tenderness, supple, no stridor. [] Cardiovascular:Heart rate regular rhythm, no murmur [] Lungs & Thorax: Bilateral breath sounds clear to auscultation [] Abdomen: Bowel sounds normal, soft, epigastric tenderness with guarding, no masses, no pulsatile masses. [] Skin: Warm, dry, no erythema, no rash. [] Back: No tenderness, no CVA tenderness. [] Extremities: No tenderness, no cyanosis, no clubbing, ROM intact, no edema. [] Neurologic: Alert and oriented X 3, normal motor function, normal sensory function, no focal deficits noted. [] Psychologic: Affect normal, judgement normal, mood normal. [] Current Patient Data: Vital Signs: Vital Signs Date Time Temp Pulse Resp B/P (MAP) Pulse Ox O2 Delivery O2 Flow Rate FiO2 03/03/20 12:45 97.8 72 16 148/66 (93) 95 Room Air EKG: EKG: [] Radiology/Procedures: Radiology/Procedures: [] Impressions: Axial CT of the abdomen and pelvis were obtained after the administration of 75 cc Omnipaque 300. Oral contrast was also administered. Coronal and sagittal reformats are also available. Exposure: One or more of the following individualized dose reduction techniques were utilized for this examination: 1. Automated exposure control 2. Adjustment of the mA and/or kV according to patient size 3. Use of iterative reconstruction technique Indication: Abdominal pain. Comparison: None. Findings: The lung bases are clear. The heart is unenlarged. There are multiple gallstones identified within the gallbladder lumen some of which contain air. There appears to be a large calculus wedged within the gallbladder neck. There is pericholecystic fluid as well as gallbladder wall inflammation. No intrahepatic biliary ductal dilation is identified. The cystic duct is grossly normal in appearance. The adrenals, spleen and kidneys are unremarkable in appearance. Pancreas appears unremarkable as well. There are a few hypodensities in the liver likely representing liver cysts. The stomach, small and large bowel are nondistended. No evidence of pathologic wall thickening. The appendix is visualized and is unremarkable in appearance. No free air-fluid. Radiologically significant retroperitoneal or mesenteric lymphadenopathy. There is mild calcific atherosclerotic disease of the abdominal aorta. The portal, superior mesenteric and splenic veins are normal in appearance. There is mild degenerative change of the thoracolumbar spine. There is a hemangioma at L3. Bony structures are otherwise unremarkable in appearance. IMPRESSION: 1. Findings suggest acute cholecystitis with a large amount of cholelithiasis. Electronically signed by: Jason Roberts MD (03/03/2020 1:59 PM) [id number] DICTATED AND SIGNED BY: JASON ROBERTS MD DATE: 03/03/20 1359 CC: LAWSON CONWAY DO; NASEEM BOND; ALEX FISCHER DO ~ Course & Med Decision Making: Course & Med Decision Making Pertinent Labs and Imaging studies reviewed. (See chart for details) The patient has a mildly elevated white count. His CT scan shows acute cholecystitis. I will treat him with Zosyn IV. His blood pressure is normal and he does not have a fever. I spoke with the patient about transfer. He is okay with going to [facility]. I spoke with Dr. Holcomb, general surgery and he has accepted the patient for transfer and plans to do surgery in the morning. I spoke with Dr. Stroud, the hospitalist and he has accepted the patient by transfer. Patient will go by ambulance. [] Dragon Disclaimer: Draglatasha Disclaimer: This electronic medical record was generated, in whole or in part, using a voice recognition dictation system. Departure Departure: Impression: Primary Impression: Acute cholecystitis due to biliary calculus Disposition: XFER SHT-TRM HOSP Condition: STABLE Referrals: NASEEM BOND (PCP) Justification of Admission: Justification of Admission: Justification of Admission Dx: Yes Comments: Cholecystitis LAWSON CONWAY DO Mar 03, 2020 13:14
[2020-03-03] MEDS ORDERED: KETOROLAC 30 MG/ML VIAL. IVP ONE (13:15)
[2020-03-03] MEDS ORDERED: PANTOPRAZOLE IV 40 MG VIAL. IVP ONE (13:15)
[2020-03-03] MEDS ORDERED: FAMOTIDINE 20 MG/2 ML VIAL IVP ONE (13:15)
[2020-03-03] MEDS ORDERED: IOHEXOL 300 MG/ML 75 ML VIAL. IV ONE ×2 (13:15)
[2020-03-03 13:21] LABS: CALCIUM 8.7 mg/dL (8.5-10.1); POTASSIUM 3.8 mmol/L (3.5-5.1)
[2020-03-03 13:27] LABS: ALBUMIN 3.4 g/dL (3.4-5.0); ALBUMIN/GLOBULIN RATIO 0.8 (1.0-1.7); TOTAL BILIRUBIN 0.4 mg/dL (0.2-1.0); TOTAL PROTEIN 7.7 g/dL (6.4-8.2)
[2020-03-03 14:02] LABS: BACTERIA,URINE 0 /HPF (0-FEW); BILIRUBIN,URINE NEG (NEG); CLARITY,URINE CLEAR; COLOR,URINE YELLOW; GLUCOSE,URINE NEG (NEG); NITRITE,URINE NEG (NEG); SQUAMOUS EPITHELIAL CELL,UR FEW /LPF; UROBILINOGEN,URINE 0.2 mg/dL (0.2 mg/dL)
--- NOTE | 2020-03-03 14:02 | RAD ---
Axial CT of the abdomen and pelvis were obtained after the administration of 75 cc Omnipaque 300. Oral contrast was also administered. Coronal and sagittal reformats are also available. Exposure: One or more of the following individualized dose reduction techniques were utilized for this examination: 1. Automated exposure control 2. Adjustment of the mA and/or kV according to patient size 3. Use of iterative reconstruction technique Indication: Abdominal pain. Comparison: None. Findings: The lung bases are clear. The heart is unenlarged. There are multiple gallstones identified within the gallbladder lumen some of which contain air. There appears to be a large calculus wedged within the gallbladder neck. There is pericholecystic fluid as well as gallbladder wall inflammation. No intrahepatic biliary ductal dilation is identified. The cystic duct is grossly normal in appearance. The adrenals, spleen and kidneys are unremarkable in appearance. Pancreas appears unremarkable as well. There are a few hypodensities in the liver likely representing liver cysts. The stomach, small and large bowel are nondistended. No evidence of pathologic wall thickening. The appendix is visualized and is unremarkable in appearance. No free air-fluid. Radiologically significant retroperitoneal or mesenteric lymphadenopathy. There is mild calcific atherosclerotic disease of the abdominal aorta. The portal, superior mesenteric and splenic veins are normal in appearance. There is mild degenerative change of the thoracolumbar spine. There is a hemangioma at L3. Bony structures are otherwise unremarkable in appearance. IMPRESSION: 1. Findings suggest acute cholecystitis with a large amount of cholelithiasis. Electronically signed by: Jason Roberts MD (03/03/2020 1:59 PM) [id number]
[2020-03-03] MEDS ORDERED: PIPERACILLIN/TAZOBACTAM 3.375 GM in IV NORMAL SALINE 50ML 50 ML IV ONE (15:15)
[2020-03-03 15:45] VITALS: BP 132/67
== END 2020-03-03 16:44 | disposition short-term general hospital (02) ==
LOC: ER 12:41 → EDBD 12:41 → ER 16:44
DX: K80.00 Calculus of gallbladder with acute cholecystitis without obstruction (principal); R11.2 Nausea with vomiting, unspecified; R19.7 Diarrhea, unspecified; J44.9 Chronic obstructive pulmonary disease, unspecified; F17.210 Nicotine dependence, cigarettes, uncomplicated
CPT/HCPCS: 36415; 74177; 80053; 81001; 85025; 96361; 96374; 96375; 99285; C9113; J1885; J2405; J3490; J7030; Q9967

== ENCOUNTER 2020-05-31 17:06 | Emergency (ER) | payer OTHER ==
[~2020-05-31] VITALS: Ht 185.4 cm; Wt 100.4 kg
[2020-05-31] MEDS ORDERED: IPRATRPIUM/ALBUTEROL 0.5/2.5MG 3 ML NEBU. ONE (17:20)
[2020-05-31] MEDS ORDERED: methylPREDNISolone SOD SUCC PF 40 MG/ML VIAL. IM ONE (17:30)
[2020-05-31] MEDS ORDERED: IPRATRPIUM/ALBUTEROL 0.5/2.5MG 3 ML NEBU. NEB ONE (17:30)
--- NOTE | 2020-05-31 17:46 | RAD ---
Single view chest dated 05/31/2020. Comparison made to 11/29/2019. CLINICAL INDICATION: Shortness of breath. FINDINGS: Single upright portable exam performed. Heart and mediastinal contours are stable. There is some vague peripheral opacity at the bilateral mid zone, right greater than left. No consolidation or pleural effusion. No pneumothorax. IMPRESSION: Mild patchy opacity at the right mid zone, atelectasis versus early pneumonia. Electronically signed by: Robert Ruiz MD (05/31/2020 5:44 PM) MATTIE
--- NOTE | 2020-05-31 18:00 | EKG ---
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
[2020-05-31] MEDS ORDERED: LEVO750T5 PO (18:14)
--- NOTE | 2020-05-31 18:14 | PHYS DOC ---
Past History Past Medical History: COPD, Pneumonia Past Surgical History: Other Additional Past Surgical Histo: CATARACT Smoking: Cigarettes Alcohol Use: Rarely Drug Use: None Adult General Chief Complaint Chief Complaint: SHORTNESS OF BREATH [facility] HPI Patient is a 60-year-old male who presents with shortness of breath. He has history of COPD and has numerous exacerbations per year per patient. Last exacerbation was treated with steroids alone approximately 6 weeks ago by primary care physician. Reports with recent change in weather, patient has had increased shortness of breath, increased in sputum purulence and production. Denies any fever or other constitutional symptoms, no chest pain, no lightheadedness, no abdominal pain, no nausea or vomit diarrhea. He is here wanting to "get it fixed before I get pneumonia again". He also complains of bright red blood per rectum x24 hours. Patient reports being constipated for past 72 hours and has been straining more than usual. He has history of external hemorrhoids. Has never had a colonoscopy, mother has history of colon cancer Review of Systems Review of Systems Fourteen body systems of review of systems have been reviewed. See HPI for pertinent positives and negative responses, other gibson all other systems are negative, non-pertinent or non-contributory Current Medications Current Medications Current Medications Medications (Trade) Dose Ordered Sig/Abner Start Time Stop Time Status Last Admin Dose Admin Albuterol/ Ipratropium (Duoneb) 3 ml 1X ONCE 05/31/20 17:30 05/31/20 17:31 DC 05/31/20 17:27 3 ML Methylprednisolone Sodium Succinate (SOLU-Medrol 40MG VIAL) 40 mg 1X ONCE 05/31/20 17:30 05/31/20 17:31 DC 05/31/20 17:31 40 MG Allergies Allergies Allergies Coded Allergies Type Severity Reaction Last Updated Verified No Known Drug Allergies 03/03/20 No Physical Exam Physical Exam Constitutional: Well developed, well nourished, no acute distress, non-toxic appearance. HENT: Normocephalic, atraumatic, bilateral external ears normal, oropharynx moist, no oral exudates, nose normal. Eyes: PERRLA, EOMI, conjunctiva normal, no discharge. Neck: Normal range of motion, no tenderness, supple, no stridor. Cardiovascular: Heart rate regular, sinus rhythm, no murmurs rubs or gallops Lungs & Thorax: No respiratory distress, no accessory muscle use, crackles my significant in right lung versus left, decreased air movement bilaterally Abdomen: Bowel sounds normal, soft, no tenderness, no masses, no pulsatile masses. Nonsurgical abdomen, no peritoneal signs :External genitalia unremarkable, circumcised penis without drainage or abnormalities, rectal exam showing patent anus and obvious nonthrombosed external hemorrhoid which is tender on palpation Skin: Warm, dry, no erythema, no rash. Back: No tenderness, no CVA tenderness. Extremities: No tenderness, no cyanosis, no clubbing, ROM intact, no edema. Neurologic: Alert and oriented X 3, grossly normal motor & sensory function, no focal deficits noted. Psychologic: Affect normal, judgement normal, mood normal. Current Patient Data Vital Signs Vital Signs Date Time Temp Pulse Resp B/P (MAP) Pulse Ox O2 Delivery O2 Flow Rate FiO2 05/31/20 17:27 92 Room Air 05/31/20 17:11 98.0 80 16 163/83 (109) EKG EKG EKG ordered and interpreted by myself at 1748 hrs. as sinus rhythm at 74 bpm, unremarkable intervals, no axis deviation, no acute ischemic findings, no STEMI Radiology/Procedures Radiology/Procedures PROCEDURE: CHEST AP ONLY Single view chest dated 05/31/2020. Comparison made to 11/29/2019. CLINICAL INDICATION: Shortness of breath. FINDINGS: Single upright portable exam performed. Heart and mediastinal contours are stable. There is some vague peripheral opacity at the bilateral mid zone, right greater than left. No consolidation or pleural effusion. No pneumothorax. IMPRESSION: Mild patchy opacity at the right mid zone, atelectasis versus early pneumonia. Electronically signed by: Robert Ruiz MD (05/31/2020 5:44 PM) [facility] Heart Score HEART Score for Chest Pain: HEART Score for Chest Pain Response (Comments) Value History Slighlty/Non-Suspicious 0 ECG Normal 0 Age >45 - < 65 1 Risk Factors >3 Risk Factors or Hx CAD 2 Total 3 Risk Factors: Risk Factors: DM, Current or recent (<one month) smoker, HTN, HLP, family history of CAD, obesity. Risk Scores: Risk Factors: DM, Current or recent (<one month) smoker, HTN, HLP, family history of CAD, obesity. Course & Med Decision Making Course & Med Decision Making Pertinent Labs and Imaging studies reviewed. (See chart for details) Work-up consistent with early pneumonia and high risk respiratory patient. IM steroids administered, Levaquin administered for community-acquired pneumonia treatment Bright red blood per rectum from external hemorrhoid, supportive care with sitz bath, witch krystina application, aloe etc. advised with outpatient follow-up. Stressed importance of screening colonoscopy At this time, given that patient is hemodynamically stable and afebrile and ambulatory and tolerating p.o. intake, I feel he is safe for discharge home with close PCP follow-up in upcoming 72 hours. He has good access to care and can get this done I advised him to take all antibiotics as scheduled to completion. I advised him to continue supportive care practices and discussed need for repeat rectal examination with PCP, also advised him to discuss setting up colonoscopy Strict return precautions discussed with good understanding, all questions and concerns addressed prior to ER departure in stable condition Dragon Disclaimer Draglatasha Disclaimer This electronic medical record was generated, in whole or in part, using a voice recognition dictation system. Departure Departure: Impression: Primary Impression: RML pneumonia Additional Impression: External hemorrhoids without complication Disposition: 01 DC HOME SELF CARE/HOMELESS Condition: STABLE Referrals: NASEEM BOND (PCP) Patient Instructions: Hemorrhoids, Pneumonia, Adult Additional Instructions: As discussed prior to discharge, please call your primary care physician tomorrow to schedule outpatient follow-up in upcoming 1 to 6 days Please take prescribed antibiotics for right middle lung pneumonia. Take in its entirety as prescribed Please view the attached sheet regarding hemorrhoid care. You have been diagnosed with external hemorrhoids which is a known problem for you. Continue supportive care practices such as applying witch krystina, aloe lotion, and sitting in warm sitz bath's If any concerning signs or symptoms present prior to outpatient follow-up please do not hesitate to come back for repeat evaluation It was a pleasure to take care of you and I wish you a speedy recovery Scripts Levofloxacin (LEVOFLOXACIN) 750 Mg Tablet 1 TAB PO DAILY for PNEUMONIA, #4 TAB Prov: SATYA MORALES DO 05/31/20 Problem Qualifiers SATYA MORALES DO May 31, 2020 18:14
[2020-05-31 18:30] VITALS: BP 160/81
[2020-05-31] MEDS ORDERED: levoFLOXacin 750 MG TABLET PO ONE (18:30)
== END 2020-05-31 18:30 | disposition home or self-care (01) ==
LOC: ER 17:06
DX: J18.9 Pneumonia, unspecified organism (principal); K64.4 Residual hemorrhoidal skin tags; R06.02 Shortness of breath; J44.9 Chronic obstructive pulmonary disease, unspecified; F17.210 Nicotine dependence, cigarettes, uncomplicated; Z98.890 Other specified postprocedural states
CPT/HCPCS: 71045; 93005; 94640; 96372; 99283; J2920

== ENCOUNTER → 2020-10-16 | Outpatient (CLI) | payer OTHER ==
[~2020-10-16] MED LIST changes: +LEVO750T5 PO
--- NOTE | 2020-10-16 10:50 | RAD ---
EXAM: Right hip, 2 views. HISTORY: Pain. COMPARISON: None. FINDINGS: 2 views of the right hip are obtained. There is a right hip arthroplasty in expected. There is no evidence of arthroplasty loosening, asymmetric liner wear or particle disease. IMPRESSION: Right hip arthroplasty in expected position. Electronically signed by: Oanh Omalley MD (10/16/2020 10:48 AM) [id number]
--- NOTE | 2020-10-16 10:51 | RAD ---
EXAM: Right wrist, 3 views. HISTORY: Pain. COMPARISON: 09/27/2020 FINDINGS: 3 views of the right wrist are obtained. There has been internal fixation of a distal radia l metaphyseal fracture with a plate and multiple screws. There is improved alignment compared to the prior exam. There is no significant interval healing along the main fracture lines. There is a displa aura ulnar styloid fracture. The degree of displacement appears slightly increased compared to the marito or exam. IMPRESSION: 1. Internal fixation of a distal radial metaphyseal fracture. There is improved alignment. There is n o significant interval healing. 2. Slight increased displacement of an ulnar styloid fracture. Electronically signed by: Oanh Omalley MD (10/16/2020 10:49 AM) [id number]
== END ==
LOC: RAD 10:27
PROVIDERS: ATTEND Physician Assistant
DX: M25.531 Pain in right wrist (principal); M25.551 Pain in right hip; Z98.890 Other specified postprocedural states; Z96.641 Presence of right artificial hip joint
CPT/HCPCS: 73110; 73502

== ENCOUNTER → 2020-11-02 | Emergency (ER) | payer OTHER | END | disposition left against medical advice (07) | LOC: ER 17:05 | DX: R06.02 Shortness of breath (principal); Z53.21 Procedure and treatment not carried out due to patient leaving prior to being seen by health care provider ==

== ENCOUNTER → 2020-11-13 | Outpatient (CLI) | payer OTHER ==
--- NOTE | 2020-11-13 13:25 | RAD ---
EXAM: XR RT WRIST 3VIEWS 11/13/2020 9:00 AM CLINICAL INDICATION: Status post surgery COMPARISON: 10/16/2020 TECHNIQUE: 3 views of the right wrist FINDINGS: The volar plate and screw fixation device traversing the healing distal radius fracture is unchanged without evidence of complication. The healing fracture is unchanged in appearance with per sistent fracture lucencies. Ununited ulnar styloid process fracture is unchanged. IMPRESSION: Unchanged healing internally fixed distal radius fracture. Electronically signed by: Maria Fernanda Pillai MD (11/13/2020 1:23 PM) [id number]
== END ==
LOC: RAD 08:49
PROVIDERS: ATTEND Physician Assistant
DX: S52.501D Unspecified fracture of the lower end of right radius, subsequent encounter for closed fracture with routine healing (principal); S52.611D Displaced fracture of right ulna styloid process, subsequent encounter for closed fracture with routine healing; Z98.890 Other specified postprocedural states; X58.XXXD Exposure to other specified factors, subsequent encounter
CPT/HCPCS: 73110

== ENCOUNTER 2020-12-01 19:38 | Emergency (ER) | payer OTHER ==
[~2020-12-01] VITALS: Ht 185.4 cm; Wt 102.7 kg
[2020-12-01 22:45] VITALS: BP 142/82
== END 2020-12-01 22:45 | disposition home or self-care (01) ==
LOC: ER 19:38
DX: R07.89 Other chest pain (principal); R06.02 Shortness of breath; R09.89 Other specified symptoms and signs involving the circulatory and respiratory systems; J44.9 Chronic obstructive pulmonary disease, unspecified; F17.210 Nicotine dependence, cigarettes, uncomplicated
CPT/HCPCS: 36415; 71045; 80053; 81001; 83880; 84484; 85025; 85610; 93005; 99285

== ENCOUNTER → 2020-12-11 | Outpatient (CLI) | payer OTHER ==
[2020-12-01 22:45] VITALS: BP 142/82
--- NOTE | 2020-12-11 14:49 | RAD ---
EXAM: AP, lateral and tangential patellar views of the right knee DATE: 12/11/2020 11:35 AM INDICATION: Reason: RT KNEE PAIN / Spl. Instructions: / History: . COMPARISON: No Prior FINDINGS: No evidence of acute fracture or dislocation. Neutral patellar tracking. No knee joint effusion. Vasc ular calcifications are seen. IMPRESSION: No evidence of acute fracture or dislocation. Electronically signed by: Cristian Mckinley MD (12/11/2020 2:47 PM) [id number]
--- NOTE | 2020-12-11 15:38 | RAD ---
Right hip: 12/11/2020 10:45 AM. Reason for study: Right hip replacement. Comparison: Right hip radiograph 10/16/2020 Technique: Two views of the right hip are obtained. Findings: There are findings consistent with recent right hip arthroplasty. Femoral and acetabular hardware is in good alignment and position. Immediate postsurgical changes within the regional soft tissues are n oted. No complications are evident. Impression: Status post right hip arthroplasty. Electronically signed by: Riya Solomon MD (12/11/2020 3:36 PM) [id number]
--- NOTE | 2020-12-11 15:38 | RAD ---
XR RT WRIST 3VIEWS 12/11/2020 10:45 AM INDICATION: Right wrist surgery COMPARISON: Right wrist radiograph 11/13/2020 TECHNIQUE: 3 views the right wrist are provided. FINDINGS/ IMPRESSION: Volar plate and screw fixation of the distal radius is identified. No lucencies or hardware. No recur rent fracture. Chronic ulnar styloid process fracture is identified. Joint spaces are maintained. Bone mineralizatio n is within normal limits. Electronically signed by: Riya Solomon MD (12/11/2020 3:35 PM) [id number]
== END ==
LOC: RAD 10:36
PROVIDERS: ATTEND Physician Assistant
DX: S52.611A Displaced fracture of right ulna styloid process, initial encounter for closed fracture (principal); M25.561 Pain in right knee; Z96.641 Presence of right artificial hip joint; X58.XXXA Exposure to other specified factors, initial encounter; Y93.89 Activity, other specified; Y92.89 Other specified places as the place of occurrence of the external cause; Y99.8 Other external cause status
CPT/HCPCS: 73110; 73501; 73562

== ENCOUNTER 2021-11-12 19:37 | Emergency (ER) | payer SELFPAY ==
[~2021-11-12] VITALS: Ht 185.4 cm; Wt 111.2 kg
[2021-11-12] MEDS ORDERED: methylPREDNISolone SOD SUCC PF 125 MG/2 ML VIAL. IV ONE (20:15)
[2021-11-12] MEDS ORDERED: IPRATRPIUM/ALBUTEROL 0.5/2.5MG 3 ML NEBU. NEB ONE (20:15)
[2021-11-12 20:34] LABS: BASO # 0.1 x10^3/uL (0.0-0.2); BASO % 1 % (0-3); EOS # 0.9 x10^3/uL (0.0-0.7); EOS % 8 % (0-3); HEMATOCRIT 40.8 % (39.0-53.0); HEMOGLOBIN 13.8 g/dL (13.0-17.5); LYMPH # 1.5 x10^3/uL (1.0-4.8); LYMPH % 14 % (24-48); MEAN CORPUSCULAR HEMOGLOBIN 31 pg (25-35); MEAN CORPUSCULAR HGB CONC 34 g/dL (31-37); MEAN CORPUSCULAR VOLUME 91 fL (79-100); MONO # 0.6 x10^3/uL (0.0-1.1); MONO % 6 % (0-9); NEUT # 7.6 x10^3uL (1.8-7.7); NEUT % 70 % (31-73); PLATELET COUNT 245 x10^3/uL (140-400); RED BLOOD COUNT 4.47 x10^6/uL (4.30-5.70); RED CELL DISTRIBUTION WIDTH 14.3 % (11.5-14.5); WHITE BLOOD COUNT 10.7 x10^3/uL (4.0-11.0)
--- NOTE | 2021-11-12 20:37 | PHYS DOC ---
Past History Past Medical History: COPD, Pneumonia Additional Past Medical Histor: PERIPHERAL EDEMA Past Surgical History: Cholecystectomy, Hip Replacement, Other Additional Past Surgical Histo: CATARACT Smoking: Cigarettes Alcohol Use: None Drug Use: None General Adult EDM: Chief Complaint: DYSPNEA/RESPIRATOY DISTRESS HPI: HPI: Patient is a 61-year-old male with dyspnea. Patient is a history of COPD. He states he had shortness of breath for several weeks to a month now. He has not had any chest pain. Cough has been nonproductive. No fever that he is aware of, patient denies any exposure to anyone ill that he is aware of. Patient has been vaccinated for Covid. Denies any history of prior VT, he has had peripheral edema previously with taking Lasix for this. Patient still smokes 1 cigarette/day. Review of Systems: Review of Systems: Constitutional: Denies fever Eyes: Denies change in visual acuity or eye pain HENT: Denies sore throat Respiratory: Reports shortness of breath Cardiovascular: Denies chest pain GI: Denies abd pain : Denies dysuria Musculoskeletal: Denies back or extremity injury Integument: Denies rash or skin lesions Neurologic: Denies headache, focal weakness or sensory changes All other systems were reviewed and found to be within normal limits, except as documented in this note. Current Medications: Current Meds: Current Medications Medications (Trade) Dose Ordered Sig/Abner Start Time Stop Time Status Last Admin Dose Admin Albuterol/ Ipratropium (Duoneb) 6 ml 1X ONCE 11/12/21 20:15 11/12/21 20:16 DC 11/12/21 20:22 6 ML Methylprednisolone Sodium Succinate (SOLU-Medrol 125MG VIAL) 125 mg 1X ONCE 11/12/21 20:15 11/12/21 20:16 DC 11/12/21 20:22 125 MG Allergies: Allergies: Allergies Coded Allergies Type Severity Reaction Last Updated Verified No Known Drug Allergies 03/03/20 No Physical Exam: PE: Constitutional: Well developed, well nourished, no acute distress, non-toxic appearance. HENT: Normocephalic, atraumatic, bilateral external ears normal, mucosa moist, nose normal. Eyes: EOMI, conjunctiva normal, no discharge. Neck: Normal range of motion, supple, no stridor, no meningeal signs. Cardiovascular: Regular rate and rhythm Lungs & Thorax: Bilateral wheezes present with diminished breath sounds bilaterally Abdomen: Soft, no tenderness or obvious masses Skin: Warm, dry, no erythema, no rash. Extremities: No tenderness, no cyanosis, no clubbing, ROM intact, no edema. Neurologic: Alert and oriented, normal motor function, normal sensory function, no focal deficits noted. Psychologic: Affect normal, judgement normal, mood normal. Current Patient Data: Vital Signs: Vital Signs Date Time Temp Pulse Resp B/P (MAP) Pulse Ox O2 Delivery O2 Flow Rate FiO2 11/12/21 19:50 98.0 108 24 155/84 (107) 93 Room Air EKG: EKG: Twelve-lead EKG demonstrates a sinus rhythm with a rate of 96 bpm. IL, QRS and QT correct intervals within normal limits. No ST segment elevation or depression, good R wave progression. [] Radiology/Procedures: Radiology/Procedures: []PATIENT: IRA LAZARO LACCOUNT: [id number]#: [id number] : 1960 LOCATION: ER AGE: 61 SEX: M EXAM STATUS: REG ER ORD. PHYSICIAN: VIKTORIYA MORRISSEY MD REASON: dyspnea PROCEDURE: CHEST AP ONLY Exam: Chest one view INDICATION: Dyspnea TECHNIQUE: Frontal view of the chest Comparisons: 12/01/2020 FINDINGS: The cardiomediastinal silhouette and pulmonary vessels are within normal limits. Interstitial opacities noted diffusely throughout the lungs. No pleural effusion IMPRESSION: Increased interstitial opacities may represent edema or atypical infectious process Electronically signed by: Kenia Vasquez MD (11/12/2021 8:43 PM) [facility] DICTATED AND SIGNED BY: KENIA VASQUEZ MD DATE: 11/12/212041 CC: NASEEM BOND; VIKTORIYA MORRISSEY MD ~ Heart Score: C/O Chest Pain: No Risk Factors: Risk Factors: DM, Current or recent (<one month) smoker, HTN, HLP, family history of CAD, obesity. Risk Scores: Score 0 - 3: 2.5% MACE over next 6 weeks - Discharge Home Score 4 - 6: 20.3% MACE over next 6 weeks - Admit for Clinical Observation Score 7 - 10: 72.7% MACE over next 6 weeks - Early Invasive Strategies Course & Med Decision Making: Course & Med Decision Making This 61-year-old male with a history of COPD. He presents with dyspnea and wheezing on exam. He was given with 125 Solu-Medrol IV and 2 DuoNeb treatments [id number]. On work-up labs are unrevealing. Chest x-ray shows some mild atypical-like infiltrates. He does have a send out Covid test pending. We will start him on DuoNeb Nebules at home and continue with prednisone for 3 additional days as well as Zithromax 500 daily for 3 days. He should follow-up with his primary care physician, return to the emergency department if symptoms become worse or other concerns arise, he stable for discharge at this time. Dragon Disclaimer: Draglatasha Disclaimer: This electronic medical record was generated, in whole or in part, using a voice recognition dictation system. Departure Departure: Impression: Primary Impression: COPD exacerbation Disposition: HOME / SELF CARE / HOMELESS Condition: STABLE Referrals: NASEEM BOND (PCP) Patient Instructions: Chronic Obstructive Pulmonary Disease Exacerbation, [id number]-my-Uscb Scripts Azithromycin (ZITHROMAX TRI-NILAM) 500 Mg Tablet 500 MG PO DAILY for bronchitis for 3 Days, #3 TAB Prov: VIKTORIYA MORRISSEY MD 11/12/21 Ipratropium/Albuterol Sulfate (DUONEB 0.5-3(2.5) MG/3 ML) 3 Ml Ampul.neb 3 ML NEB QID for shortness of breath, #90 EACH Prov: VIKTORIYA MORRISSEY MD 11/12/21 Prednisone (PREDNISONE) 20 Mg Tablet 60 MG PO DAILY for bronchitis for 3 Days, #9 TAB Prov: VIKTORIYA MORRISSEY MD 11/12/21 VIKTORIYA MORRISSEY MD Nov 12, 2021 20:37
[2021-11-12 20:40] LABS: CALCIUM 8.7 mg/dL (8.5-10.1); GFR 76.5; POTASSIUM 3.7 mmol/L (3.5-5.1)
--- NOTE | 2021-11-12 20:45 | RAD ---
Exam: Chest one view INDICATION: Dyspnea TECHNIQUE: Frontal view of the chest Comparisons: 12/01/2020 FINDINGS: The cardiomediastinal silhouette and pulmonary vessels are within normal limits. Interstitial opacities noted diffusely throughout the lungs. No pleural effusion IMPRESSION: Increased interstitial opacities may represent edema or atypical infectious process Electronically signed by: Kenia Mccurdy MD (11/12/2021 8:43 PM) [facility]
[2021-11-12 20:52] LABS: ALBUMIN 3.3 g/dL (3.4-5.0); ALBUMIN/GLOBULIN RATIO 0.9 (1.0-1.7); TOTAL BILIRUBIN 0.4 mg/dL (0.2-1.0); TOTAL PROTEIN 6.9 g/dL (6.4-8.2)
[2021-11-12 21:09] LABS: INFLUENZA A PATIENT NEGATIVE (NEGATIVE); INFLUENZA B PATIENT NEGATIVE (NEGATIVE)
--- NOTE | 2021-11-12 21:18 | EKG ---
[address] [address] Test Date: 2021-11-12 Test Time: 20:17:09 Pat Name: IRA LAZARO Department: Room: Gender: M [employer]: : 1960 Requested By: VIKTORIYA MORRISSEY Order Number: [id number] Reading MD: Gonzalez Mcleod Measurements Intervals [place] Rate: 96 P: 60 ME: 168 QRS: 28 QRSD: 96 T: 34 QT: 340 QTc: 436 Interpretive Statements SINUS RHYTHM LEFT ATRIAL ABNORMALITY Electronically Signed On 11-19-2021 14:14:05 CDT by Gonzalez Mcleod
[2021-11-12 21:21] VITALS: BP 146/70
[2021-11-12] MEDS ORDERED: AZIT500T2 PO (21:54)
[2021-11-12] MEDS ORDERED: IPRA3AMP29 NEB (21:54)
[2021-11-12] MEDS ORDERED: PRED20TA PO (21:54)
[2021-11-12 22:15] LABS: INFLUENZA A PATIENT NEGATIVE (NEGATIVE); INFLUENZA B PATIENT NEGATIVE (NEGATIVE)
== END 2021-11-12 22:03 | disposition home or self-care (01) ==
LOC: ER 19:37
DX: J44.1 Chronic obstructive pulmonary disease with (acute) exacerbation (principal); F17.210 Nicotine dependence, cigarettes, uncomplicated; Z20.822 Contact with and (suspected) exposure to COVID-19
CPT/HCPCS: 36415; 71045; 80053; 83880; 84484; 85025; 87428; 93005; 94640; 96374; 99285; C9803; J2930; U0003